=== PATIENT | male | born 1990 | race Caucasian/White ===

== ENCOUNTER 2024-01-29 17:03 | Emergency (ER) | payer BC, MEDICAID, SELFPAY ==
[2024-01-29 17:04] VITALS: BP 116/77; PULSE 101; RESP 16; TEMP 37; O2SAT 95; BMI 23.5
--- NOTE | 2024-01-29 17:26 | ED.C_ITS ---
HPI - Psych 2 General: Chief Complaint: Psychiatric Symptoms Stated Complaint: 96 Time Seen by Provider: 01/29/24 17:05 Source: patient and police Limitations: no limitations History of Present Illness: 34-year-old male is here from detention for s uicidal ideations. Patient states he was arrested yesterday states he is high on meth and made statements in detention about overdosing. He states now he feels that he is back to his normal self he denies SI denies HI he denies any worse improved factors. Associated symptoms: Deny depression Review of Systems 2 Const: Denies: fever(s), chills, body aches or change in appetite ENMT: Denies: throat pain or dental pain Card: Denies: chest pain Resp: Denies: dyspnea GI: Denies: abdominal pain, nausea, vomiting or diarrhea Musc: Denies: neck pain or back pain Skin/Breast: Denies: rash Neuro: Denies: headache(s) Psych: Denies: depression All/Imm: Denies: urticaria Physical Exam 2 Const: COMMON NORMALS: no acute distress, patient oriented x3 and healthy appearing HENMT: COMMON NORMALS: normocephalic and atraumatic HEAD & SCALP: n ormocephalic and atraumatic Eye: COMMON NORMALS: Equal, round and reactive pupils present and EOMs intact bilaterally PUPIL: Yes Equal, round and reactive pupils present Neck/C-Spine: COMMON NORMALS: full ROM and supple Chest: COMMONS NORMALS: normal inspection of the chest Resp: COMMON NORMALS: normal respiratory effort Cardio: COMMON NORMALS: regular rate, regular rhythm and No murmurs present (Cardio) RATE: regular rate RHYTHM: regular rhythm Extremity: COMMON NORMALS: normal to inspection and full ROM Neuro: COMMON NORMALS: patient oriented x3, moves all extremities and no focal motor deficits Psych: COMMON NORMALS: mental status grossly normal, Normal thought process present and cooperative THOUGHT PROCESS: Normal thought process present Skin: COMMON NORMALS: no rashes or lesions noted and no wounds GENERAL SKIN EXAM: no rashes or lesions noted Course 2 Vital Signs: Vital signs: Vital Signs Temperature 98.6 F 01/29/24 17:04 Pulse Rate 101 H 01/29/24 17:04 Respiratory Rate 16 01/29/24 17:04 Blood Pressure 116/77 01/29/24 17:04 Pulse Oximetry 95 01/29/24 17:04 MDM - Psych Medical Decision Making Patient presents here from detention he been arrested he did admit to using meth and did admit that he made statements about not wanting to be more. He is released from detention today he states that he is sober currently no longer suicidal or homicidal patient was seen in the ER by psychiatrist Dr. Quiroz who rescinded his 96-hour hold and feels he is stable for discharge as well Medical Records I reviewed the patient's medical records. Lab Data 01/29/24 18:22 01/29/24 18:22 Laboratory Results WBC 8.97 10^3/uL (3.29-11.43) 01/29/24 18:22 RBC 5.70 10^6/uL (3.85-5.65) H 01/29/24 18:22 Hgb 17.70 g/dL (11.27-16.99) H 01/29/24 18:22 Hct 52.2 % (37-53) 01/29/24 18:22 MCV 91.6 fl (82-101) 01/29/24 18:22 MCH 31.1 pg (27-33) 01/29/24 18:22 MCHC 33.9 g/dL (30-55) 01/29/24 18:22 RDW 11.9 % (12.1-15.1) L 01/29/24 18:22 Plt Count 264 10^3/cmm (157-399) 01/29/24 18:22 MPV 10.2 fL (7.4-10.4) 01/29/24 18:22 Neut % (Auto) 58.1 % 01/29/24 18:22 Lymph % (Auto) 24.9 % 01/29/24 18:22 [place] % (Auto) 14.5 % 01/29/24 18:22 Eos % (Auto) 1.8 % 01/29/24 18:22 Baso % (Auto) 0.4 % 01/29/24 18:22 Neut # (Auto) 5.21 10^3/uL (1.8-7.7) 01/29/24 18:22 Lymph # (Auto) 2.2 10^3/uL (0.8-4.8) 01/29/24 18:22 [place] # (Auto) 1.3 10^3/uL (0.2-0.9) H 01/29/24 18:22 Eos # (Auto) 0.2 10^3/uL (0.0-0.8) 01/29/24 18:22 Baso # (Auto) 0.0 10^3/uL (0.0-0.1) 01/29/24 18:22 Nucleated RBC % (auto) 0 % 01/29/24 18:22 Nucleated RBCs # 0.0 /100WBC 01/29/24 18:22 No radiology studies performed this visit Discharge Plan Discharge Patient Disposition: Home Clinical Impression: Depression, Drug abuse Condition: Stable Discharge Orders: Discharge ED (Routine); Ordered 01/29/24 Ordered By: Mariaelena Hodges Discharge Diet: Advance as tolerated Discharge Activity: Resume usual activity Patient Instructions: Methamphetamine Use Disorder (ED) Coding Level of Care Code ED C++ Quant Developer for Soni Roman
--- NOTE | 2024-01-29 18:03 | P.NPUCON_ITS ---
Providers/Reason for Consult 2 Consulting Physican/Specialty*: Suresh Johnson MD/Psychiatry Reason for Consult*: suicidal ideation Psych Consult HPI History of Present Illness Srinath Woodward is a 34 year old male who reports that he had been intoxicated on methamphetamine and was arrested on 01/28/2024 after he had made statements about wanting to overdose. Patient was placed on a 96-hour hold and brought to the emergency department for further evaluation today. The patient had reported that he has no clear recollection of having made statements indicating to hurt himself. He denies any thoughts of hurting himself or others. Patient had reported a history of methamphetamine use for several years since adolescence. He had reported a past history of rehabilitation inpatient for 3 months in [facility] in the distant past. He reports that the longest period of sobriety off of methamphetamine had been 6 months. He denied any comorbid use of any illicit substances. He had reported having suffered from depression in the past and also reported a history of some paranoia associated with methamphetamine use but is denying these currently. He had reported that he had been hospitalized psychiatrically a few times in the past over the past few years under the influence of amphetamines including in [place]. The patient had reported that he had had no recollection for how he got to [facility] as he had been in [place] earlier in the day . Inpatient psychiatric history: As stated above outpatient psychiatric substance abuse treatment outpatient as well as ever since. Medical history: None surgical history: Appendix removal allergies: No known drug allergies legal history: History of incarceration social history: Patient lives with his parents in [place], he reports supportive parents, Current medications: none Meds Home Medications and Allergies Allergies Allergy/AdvReac Type Severity Reaction Status Date / Time No Known Allergies Allergy Verified 01/29/24 17:08 Mental Status Exam 2 MSE Comments: is a pleasant white male who appeared his stated age and appeared in no acute distress. His gait was within normal limits. His hygiene was poor. There was no evidence of any abnormal involuntary motor movements tics or tremors. His mood was described as okay. His affect appeared euthymic. His thought process was linear logical and goal-directed. His thought content showed no evidence of homicidal or suicidal ideation he did not appear to be responding internal stimuli. There is no clear evidence of delusional thinking. There is no evidence of paranoia. His recent and remote memory appeared grossly intact. He was alert and oriented person place and time. His insight was partial. His judgment appeared fair. His impulse control appeared fair . Vitals/I&O/Wt Last Vital Signs Temp 98.6 F 01/29/24 17:04 Pulse 101 H 01/29/24 17:04 Resp 16 01/29/24 17:04 BP 116/77 01/29/24 17:04 Pulse Ox 95 01/29/24 17:04 Weight last 48 hrs Weight 68.039 kg Data NPU 01/29/24 18:22 01/29/24 18:22 A&P Assessment and plan (1) Methamphetamine abuse: Plan 1. 96-hour hold will be rescinded as patient does not meet criteria for inpatient hospitalization. Discussed with patient the digital therapeutic application through [employer]. Brochure was given as this would be a way for the patient to receive contingency management treatment for methamphetamine abuse with the presence of an android RN IOS operating phone. Patient appeared interested in this information and was agreeable to considering this treatment. Attestations NPU 2 Medical Necessity Statement*: Inpatient admission not necessary at this time. Coding Level of Care Code Acute Code for [facility] Fwd Diagnoses Methamphetamine abuse F15.10
[2024-01-29 18:33] LABS: Basophils % 0.4 %; Eosinophils # 0.2 10^3/uL (0.0-0.8); Eosinophils % 1.8 %; Hematocrit 52.2 % (37-53); Lymphocytes # 2.2 10^3/uL (0.8-4.8); Lymphocytes % 24.9 %; Mean Corpuscular HGB Conc 33.9 g/dL (30-55); Mean Corpuscular Hemoglobin 31.1 pg (27-33); Mean Corpuscular Volume 91.6 fl (82-101); Mean Platelet Volume 10.2 fL (7.4-10.4); Monocytes # 1.3 10^3/uL (0.2-0.9); Monocytes % 14.5 %; Neutrophils # 5.21 10^3/uL (1.8-7.7); Neutrophils % 58.1 %; Nucleated Red Blood Cells % 0 %; Platelet Count 264 10^3/cmm (157-399); Red Cell Distribution Width 11.9 % (12.1-15.1); White Blood Count 8.97 10^3/uL (3.29-11.43)
[2024-01-29 18:45] VITALS: BP 116/77; PULSE 101; RESP 16; TEMP 37; O2SAT 95
[2024-01-29 18:57] LABS: Alanine Aminotransferase 19 U/L (0-41); Albumin Level 4.8 g/dL (3.5-5.2); Alkaline Phosphatase 73 U/L (40-130); Aspartate Amino Transferase 16 U/L (0-40); Blood Urea Nitrogen 12 mg/dL (6-20); Calcium 10.1 mg/dL (8.5-10.5); Carbon Dioxide 26 mmol/L (22-29); Chloride 100 mmol/L (98-107); Creatinine Clr Calc Pharmacy 97.5269; Globulin 3.1 g/dL (1.3-4.6); Glucose 137 mg/dL (65-115); Osmolality Calculated 286 mOsm/kg (285-295); Sodium 137 mmol/L (136-145); Total Bilirubin 0.7 mg/dL (0.15-1.2); Total Protein 7.9 g/dL (6.6-8.7)
[2024-01-29 18:59] LABS: Acetaminophen < 5.0 ug/mL (10-30); Salicylate < 0.3 mg/dL (3-10)
== END 2024-01-29 18:48 | disposition home or self-care (01) ==
PROVIDERS: Psychiatry & Neurology Psychiatry; Emergency Provider Emergency Medicine
DX: F32.A Depression, unspecified (principal); F15.10 Other stimulant abuse, uncomplicated
CPT/HCPCS: 36415; 80053; 80307; 85025; 99283